=== PATIENT | female | born 1980 | race Two or more races ===

== ENCOUNTER → 2018-04-24 | Outpatient (CLI) | payer BC, OTHER | END | disposition home or self-care (01) | LOC: US 12:05 | DX: R92.8 Other abnormal and inconclusive findings on diagnostic imaging of breast (principal); E11.9 Type 2 diabetes mellitus without complications | CPT/HCPCS: 76641 ==

== ENCOUNTER 2021-08-29 07:22 | Day surgery (SDC) | payer BC ==
[~2021-08-29] VITALS: Ht 149.9 cm; Wt 71.0 kg
[~2021-08-29 07:22] MED LIST: DOXY1TAB3 PO; HYDROmorphone 2 MG/ML VIAL IVP PRN; IV RINGERS,LACTATED 1000ML 1,000 ML IV SCH; MORPHINE SULFATE 2 MG/ML INJ. IVP PRN; OXYC1TAB15 PO; PROCHLORPERAZINE 10 MG/2 ML VIAL. IVP PRN; ceFAZolin SODIUM IV Push 1 GM VIAL. IVP PRN; fentaNYL PF VIAL 100 MCG/2 ML VIAL IVP PRN
[2021-08-29] MEDS ORDERED: LIDOCAINE 1% Multi-Dose 20 ML VIAL. INJ ONE (07:30)
[2021-08-29] MEDS ORDERED: ceFAZolin SODIUM IV Push 1 GM VIAL. IVP ONE (07:30)
[2021-08-29 07:42] VITALS: BP 112/63
[2021-08-29] MEDS ORDERED: METHYLENE BLUE 0.5% 10ml AMPULE. IJ ONE (07:45)
[2021-08-29 09:00] LABS: BASO % 1 % (0-3); EOS # 0.2 x10^3/uL (0.0-0.7); EOS % 2 % (0-3); HEMATOCRIT 40.8 % (36.0-47.0); HEMOGLOBIN 13.9 g/dL (12.0-15.5); LYMPH # 2.8 x10^3/uL (1.0-4.8); LYMPH % 36 % (24-48); MEAN CORPUSCULAR HEMOGLOBIN 30 pg (25-35); MEAN CORPUSCULAR HGB CONC 34 g/dL (31-37); MEAN CORPUSCULAR VOLUME 87 fL (79-100); MONO # 0.4 x10^3/uL (0.0-1.1); MONO % 6 % (0-9); NEUT # 4.2 x10^3/uL (1.8-7.7); NEUT % 56 % (31-73); PLATELET COUNT 272 x10^3/uL (140-400); RED CELL DISTRIBUTION WIDTH 13.1 % (11.5-14.5); WHITE BLOOD COUNT 7.6 x10^3/uL (4.0-11.0)
[2021-08-29 09:08] LABS: CALCIUM 8.4 mg/dL (8.5-10.1); CREATININE 0.5 mg/dL (0.6-1.0); GFR 135.3; POTASSIUM 3.6 mmol/L (3.5-5.1)
[2021-08-29 09:14] LABS: ALBUMIN 3.5 g/dL (3.4-5.0); ALBUMIN/GLOBULIN RATIO 0.9 (1.0-1.7); TOTAL BILIRUBIN 0.6 mg/dL (0.2-1.0); TOTAL PROTEIN 7.6 g/dL (6.4-8.2)
[2021-08-29] MEDS ORDERED: DEXAMETHASONE SOD PHOS 4 MG/ML VIAL ONE (10:03)
[2021-08-29] MEDS ORDERED: MIDAZOLAM HCL/PF 2 MG/2 ML VIAL. ONE (10:03)
[2021-08-29] MEDS ORDERED: ONDANSETRON PF 4 MG/2 ML VIAL. ONE (10:03)
[2021-08-29] MEDS ORDERED: METHYLENE BLUE 0.5% 10ml AMPULE. ONE (10:03)
[2021-08-29] MEDS ORDERED: LIDOCAINE 2% PF 5 ML VIAL. ONE (10:03)
[2021-08-29] MEDS ORDERED: PROPOFOL 10 MG/ML (20ML) VIAL. IV ONE (10:03)
[2021-08-29] MEDS ORDERED: fentaNYL PF VIAL 100 MCG/2 ML VIAL ONE ×3 (10:03→13:01)
--- NOTE | 2021-08-29 10:20 | PDOC ---
SURGICAL PROGRESS NOTE DATE: 08/29/21 TIME: 10:19 No change in dictated H&P Vital Signs Vital Signs Date Time Temp Pulse Resp B/P (MAP) Pulse Ox O2 Delivery O2 Flow Rate FiO2 08/29/21 07:42 97.5 76 96 97.5 08/29/21 07:35 12 112/63 Room Air Labs Laboratory Tests Test 08/29/21 07:28 08/29/21 07:44 Bedside Urine HCG, Qualitative Hcg negative (Negative) White Blood Count 7.6 x10^3/uL (4.0-11.0) Red Blood Count 4.70 x10^6/uL (3.50-5.40) Hemoglobin 13.9 g/dL (12.0-15.5) Hematocrit 40.8 % (36.0-47.0) Mean Corpuscular Volume 87 fL (79-100) Mean Corpuscular Hemoglobin 30 pg (25-35) Mean Corpuscular Hemoglobin Concent 34 g/dL (31-37) Red Cell Distribution Width 13.1 % (11.5-14.5) Platelet Count 272 x10^3/uL (140-400) Neutrophils (%) (Auto) 56 % (31-73) Lymphocytes (%) (Auto) 36 % (24-48) Monocytes (%) (Auto) 6 % (0-9) Eosinophils (%) (Auto) 2 % (0-3) Basophils (%) (Auto) 1 % (0-3) Neutrophils # (Auto) 4.2 x10^3/uL (1.8-7.7) Lymphocytes # (Auto) 2.8 x10^3/uL (1.0-4.8) Monocytes # (Auto) 0.4 x10^3/uL (0.0-1.1) Eosinophils # (Auto) 0.2 x10^3/uL (0.0-0.7) Basophils # (Auto) 0.0 x10^3/uL (0.0-0.2) Sodium Level 141 mmol/L (136-145) Potassium Level 3.6 mmol/L (3.5-5.1) Chloride Level 104 mmol/L (98-107) Carbon Dioxide Level 29 mmol/L (21-32) Anion Gap 8 (6-14) Blood Urea Nitrogen 16 mg/dL (7-20) Creatinine 0.5 mg/dL (0.6-1.0) Estimated GFR (Cockcroft-Gault) 135.3 BUN/Creatinine Ratio 32 (6-20) Glucose Level 114 mg/dL (70-99) Calcium Level 8.4 mg/dL (8.5-10.1) Total Bilirubin 0.6 mg/dL (0.2-1.0) Aspartate Amino Transf (AST/SGOT) 44 U/L (15-37) Alanine Aminotransferase (ALT/SGPT) 101 U/L (14-59) Alkaline Phosphatase 64 U/L (46-116) Total Protein 7.6 g/dL (6.4-8.2) Albumin 3.5 g/dL (3.4-5.0) Albumin/Globulin Ratio 0.9 (1.0-1.7) Laboratory Tests Test 08/29/21 07:28 08/29/21 07:44 Bedside Urine HCG, Qualitative Hcg negative (Negative) White Blood Count 7.6 x10^3/uL (4.0-11.0) Red Blood Count 4.70 x10^6/uL (3.50-5.40) Hemoglobin 13.9 g/dL (12.0-15.5) Hematocrit 40.8 % (36.0-47.0) Mean Corpuscular Volume 87 fL (79-100) Mean Corpuscular Hemoglobin 30 pg (25-35) Mean Corpuscular Hemoglobin Concent 34 g/dL (31-37) Red Cell Distribution Width 13.1 % (11.5-14.5) Platelet Count 272 x10^3/uL (140-400) Neutrophils (%) (Auto) 56 % (31-73) Lymphocytes (%) (Auto) 36 % (24-48) Monocytes (%) (Auto) 6 % (0-9) Eosinophils (%) (Auto) 2 % (0-3) Basophils (%) (Auto) 1 % (0-3) Neutrophils # (Auto) 4.2 x10^3/uL (1.8-7.7) Lymphocytes # (Auto) 2.8 x10^3/uL (1.0-4.8) Monocytes # (Auto) 0.4 x10^3/uL (0.0-1.1) Eosinophils # (Auto) 0.2 x10^3/uL (0.0-0.7) Basophils # (Auto) 0.0 x10^3/uL (0.0-0.2) Sodium Level 141 mmol/L (136-145) Potassium Level 3.6 mmol/L (3.5-5.1) Chloride Level 104 mmol/L (98-107) Carbon Dioxide Level 29 mmol/L (21-32) Anion Gap 8 (6-14) Blood Urea Nitrogen 16 mg/dL (7-20) Creatinine 0.5 mg/dL (0.6-1.0) Estimated GFR (Cockcroft-Gault) 135.3 BUN/Creatinine Ratio 32 (6-20) Glucose Level 114 mg/dL (70-99) Calcium Level 8.4 mg/dL (8.5-10.1) Total Bilirubin 0.6 mg/dL (0.2-1.0) Aspartate Amino Transf (AST/SGOT) 44 U/L (15-37) Alanine Aminotransferase (ALT/SGPT) 101 U/L (14-59) Alkaline Phosphatase 64 U/L (46-116) Total Protein 7.6 g/dL (6.4-8.2) Albumin 3.5 g/dL (3.4-5.0) Albumin/Globulin Ratio 0.9 (1.0-1.7) Justicifation of Admission Dx: Justifications for Admission: Justification of Admission Dx: Yes CARSON GUARDADO MD Aug 29, 2021 10:20
--- NOTE | 2021-08-29 10:30 | PDOC ---
SURGICAL PROGRESS NOTE DATE: 08/29/21 TIME: 10:28 Subjective Op Note: Surgeon...................................Andrea Pre and post op diag...............left breast mass Anesthesia..............................general Procedure...............................excision left breast mass via needle localization Drains....................................none Blood loss..............................10cc Fluids.....................................see anesthesia sheet Condition................................satisfactory Vital Signs Vital Signs Date Time Temp Pulse Resp B/P (MAP) Pulse Ox O2 Delivery O2 Flow Rate FiO2 08/29/21 07:42 97.5 76 96 97.5 08/29/21 07:35 12 112/63 Room Air Labs Laboratory Tests Test 08/29/21 07:28 08/29/21 07:44 Bedside Urine HCG, Qualitative Hcg negative (Negative) White Blood Count 7.6 x10^3/uL (4.0-11.0) Red Blood Count 4.70 x10^6/uL (3.50-5.40) Hemoglobin 13.9 g/dL (12.0-15.5) Hematocrit 40.8 % (36.0-47.0) Mean Corpuscular Volume 87 fL (79-100) Mean Corpuscular Hemoglobin 30 pg (25-35) Mean Corpuscular Hemoglobin Concent 34 g/dL (31-37) Red Cell Distribution Width 13.1 % (11.5-14.5) Platelet Count 272 x10^3/uL (140-400) Neutrophils (%) (Auto) 56 % (31-73) Lymphocytes (%) (Auto) 36 % (24-48) Monocytes (%) (Auto) 6 % (0-9) Eosinophils (%) (Auto) 2 % (0-3) Basophils (%) (Auto) 1 % (0-3) Neutrophils # (Auto) 4.2 x10^3/uL (1.8-7.7) Lymphocytes # (Auto) 2.8 x10^3/uL (1.0-4.8) Monocytes # (Auto) 0.4 x10^3/uL (0.0-1.1) Eosinophils # (Auto) 0.2 x10^3/uL (0.0-0.7) Basophils # (Auto) 0.0 x10^3/uL (0.0-0.2) Sodium Level 141 mmol/L (136-145) Potassium Level 3.6 mmol/L (3.5-5.1) Chloride Level 104 mmol/L (98-107) Carbon Dioxide Level 29 mmol/L (21-32) Anion Gap 8 (6-14) Blood Urea Nitrogen 16 mg/dL (7-20) Creatinine 0.5 mg/dL (0.6-1.0) Estimated GFR (Cockcroft-Gault) 135.3 BUN/Creatinine Ratio 32 (6-20) Glucose Level 114 mg/dL (70-99) Calcium Level 8.4 mg/dL (8.5-10.1) Total Bilirubin 0.6 mg/dL (0.2-1.0) Aspartate Amino Transf (AST/SGOT) 44 U/L (15-37) Alanine Aminotransferase (ALT/SGPT) 101 U/L (14-59) Alkaline Phosphatase 64 U/L (46-116) Total Protein 7.6 g/dL (6.4-8.2) Albumin 3.5 g/dL (3.4-5.0) Albumin/Globulin Ratio 0.9 (1.0-1.7) Laboratory Tests Test 08/29/21 07:28 08/29/21 07:44 Bedside Urine HCG, Qualitative Hcg negative (Negative) White Blood Count 7.6 x10^3/uL (4.0-11.0) Red Blood Count 4.70 x10^6/uL (3.50-5.40) Hemoglobin 13.9 g/dL (12.0-15.5) Hematocrit 40.8 % (36.0-47.0) Mean Corpuscular Volume 87 fL (79-100) Mean Corpuscular Hemoglobin 30 pg (25-35) Mean Corpuscular Hemoglobin Concent 34 g/dL (31-37) Red Cell Distribution Width 13.1 % (11.5-14.5) Platelet Count 272 x10^3/uL (140-400) Neutrophils (%) (Auto) 56 % (31-73) Lymphocytes (%) (Auto) 36 % (24-48) Monocytes (%) (Auto) 6 % (0-9) Eosinophils (%) (Auto) 2 % (0-3) Basophils (%) (Auto) 1 % (0-3) Neutrophils # (Auto) 4.2 x10^3/uL (1.8-7.7) Lymphocytes # (Auto) 2.8 x10^3/uL (1.0-4.8) Monocytes # (Auto) 0.4 x10^3/uL (0.0-1.1) Eosinophils # (Auto) 0.2 x10^3/uL (0.0-0.7) Basophils # (Auto) 0.0 x10^3/uL (0.0-0.2) Sodium Level 141 mmol/L (136-145) Potassium Level 3.6 mmol/L (3.5-5.1) Chloride Level 104 mmol/L (98-107) Carbon Dioxide Level 29 mmol/L (21-32) Anion Gap 8 (6-14) Blood Urea Nitrogen 16 mg/dL (7-20) Creatinine 0.5 mg/dL (0.6-1.0) Estimated GFR (Cockcroft-Gault) 135.3 BUN/Creatinine Ratio 32 (6-20) Glucose Level 114 mg/dL (70-99) Calcium Level 8.4 mg/dL (8.5-10.1) Total Bilirubin 0.6 mg/dL (0.2-1.0) Aspartate Amino Transf (AST/SGOT) 44 U/L (15-37) Alanine Aminotransferase (ALT/SGPT) 101 U/L (14-59) Alkaline Phosphatase 64 U/L (46-116) Total Protein 7.6 g/dL (6.4-8.2) Albumin 3.5 g/dL (3.4-5.0) Albumin/Globulin Ratio 0.9 (1.0-1.7) Justicifation of Admission Dx: Justifications for Admission: Justification of Admission Dx: Yes CARSON GUARDADO MD Aug 29, 2021 10:30
--- NOTE | 2021-08-29 11:06 | PREOP HP ---
DATE OF SERVICE: 08/29/2021 HISTORY OF PRESENT ILLNESS: The patient is referred by Dr. Feliciano because of a mass of the left breast. The history shows that she had this mass found on routine mammography and in fact had biopsy, which proved it to be benign. This was just done about a week ago. She has thought about it, seen Dr. Feliciano and she is adamant about wanting the suspicious area removed. She has been told and knows that the biopsy specimens were benign, but she still wants this removed. She is adamant and does not want to worry about it or think about it or have another mammogram, which shows that the next year she has a mammogram. PAST MEDICAL HISTORY: Shows normal childhood diseases. No high blood pressure, cancer, TB, asthma. MEDICATIONS: No other medications and takes no anticoagulants. ALLERGIES: ALLERGIC TO CODEINE, SHE HAS A RASH. SOCIAL HISTORY: Does not smoke, drink or use drugs. REVIEW OF SYSTEMS: Negative except for breast, which on the left breast laterally where the biopsy site was just a little bit tender. FAMILY HISTORY: Noncontributory and review of systems was negative other than the breast pain from the biopsy. PHYSICAL EXAMINATION: GENERAL: Shows an alert female, in no acute distress. HEAD, EYES, EARS, NOSE AND THROAT: Grossly clear. CHEST: Clear to auscultation. HEART: Had no murmurs, heaves, friction rubs or thrills, and the rate was 70 beats per minute and was regular. ABDOMEN: Protuberant, obese, could not really tell if the liver was enlarged. EXTREMITIES: Grossly normal. PELVIC: Not done. BREASTS: Examination of the breasts, both axillary areas are negative. Right breast was normal without masses and neither had nipple discharge. She did have a small scratch, where the needle biopsy had been done at the lateral broader area of the left breast about 4-6 inches from the areolar margin. It was somewhat tender there, though not breast, just tender from the biopsy. IMPRESSION: Mass of the left breast. Per her request, we will plan to excise the area of concern under needle localization at a time that is satisfactory with her. VIKA DR: Karlos TID: [id number] [facility]
--- NOTE | 2021-08-29 12:02 | DISCH ---
DISCHARGE INSTRUCTIONS Condition on Discharge Condition on Discharge: Stable Activity After Discharge Activity Instructions for Disc: Activity as tolerated, Avoid exertion Bathing Instructions: Shower-keep dressing dry Lifting Instructions after Dis: No heavy lifting Driving Instructions after Dis: Do not drive today Weight Bearing Status after Di: As tolerated Diet after Discharge Diet after Discharge: Clear Liquid, Regular Diet Texture: Regular Wound Incision Care Wound/Incision Care: Reinforce dressing PRN Contacting the DR. after DC Call your doctor for: Concerns you may have Follow-Up Follow up with: call and make appointment top see me in 2 weeks. Treatment/Equipment after DC Adaptive Equipment Issued: None CARSON GUARDADO MD Aug 29, 2021 12:02
[2021-08-29] MEDS: fentaNYL PF VIAL 100 MCG/2 ML VIAL IVP PRN ×3 (12:16→13:03)
[2021-08-29] MEDS ORDERED: PROCHLORPERAZINE 10 MG/2 ML VIAL. ONE (12:29)
[2021-08-29] MEDS ORDERED: oxyCODONE/APAP 5/325 1 TAB TABLET PO ONE (12:30)
[2021-08-29 13:10] VITALS: BP 117/60
--- NOTE | 2021-08-29 19:31 | OP ---
DATE OF SURGERY: 08/29/2021 PREOPERATIVE DIAGNOSIS: Mass of the left breast. POSTOPERATIVE DIAGNOSIS: Mass of the left breast. ANESTHESIA: General. PROCEDURE: Excision of mass, left breast via needle localization. TECHNIQUE: The patient has had previous biopsy of this done with the needle, proved to be benign, but she wanted it totally removed and did not want a tumor in her breast. As such, I reviewed the x-rays and after the guidewire was placed this morning, we localized and knew the needle was just anterior to the clip in the area of concern and we knew exactly where to go plus methylene blue had been injected in the area. As such, an incision was made in the lateral breast extending inferolaterally where the guidewire went in. This was about 6-8 cm from the areolar margin, at about the 4 o'clock position. We carried this down through the skin following the skin lines at the site of the wire insertion. Once there, we then delivered the wire into the wound and slowly went with cautery down into the subcutaneous tissues. We used Danny retractors and then Maher to hold the wound open as we grasped the tissue around the guidewire and the guidewire. We pulled this into the wound and slowly used cautery to slowly go down around the guidewire widely, making certain that we went more anterior to assess where the mass was. One small bleeder was suture ligated with a 3-0 Vicryl. Otherwise, the bleeding was controlled with cautery. We simply went wide around the wire and saw where there is some methylene blue and went wide there to make certain that we got a wide breast tissue and encompass the mass, the clip that had been placed there in the guidewire. This was sent to x-ray and the radiologist I spoke to personally said that the guidewire in the area in question had been removed and no further treatment surgically was necessary at this point. As such, the resultant defect was inspected, irrigated and then the deeper breast tissue and other tissues were approximated in layers using 3-0 Vicryl interrupted sutures. The deep dermis and subcutaneous was approximated with 4-0 Vicryl and the skin was closed using a subcuticular 5-0 Vicryl. The procedure was now terminated and sterile dressing was applied. The blood loss during the procedure was probably 10 mL. Fluids given can be obtained from the anesthesia sheet. No drains were used and the condition of the patient was satisfactory as she has returned to the recovery room. HARJINDER DR: Karlos TID: [id number] MTDD
--- NOTE | 2021-08-31 09:03 | RAD ---
CLINICAL INDICATION: Reason: Abnormal mammogram PRE-PROCEDURAL CONSULTATION: Details of the procedure and possible limitations and complications were discussed with the patient. After addressing her questions and concerns, written informed consent wa s obtained. A time out was then taken to verify patient's name and date of as well as site and laterality. PROCEDURE: Using a 7.5 cm localizing needle, the biopsy clip within the left breast was targeted und er ultrasound via a lateral approach. The area of needle localization was cleansed and prepped in the typical sterile fashion. 5 cc of 1% lidocaine was used to anesthetize the skin and deeper soft tissu es. A 7.5 cm needle was then advanced immediately adjacent to the biopsy clip. The position of the ne edle was confirmed on orthogonal digital mammographic views and when optimal, the wire was deployed, the needle removed, and the wire secured in place. Hemostasis was achieved. Post-procedural digital mammographic views of the left breast demonstrate the biopsy clip immediatel y adjacent to the wire, approximately 1 cm proximal to the thick segment of the wire. The films with appropriate annotations were discussed in person with Dr. Mendez. The patient tolerated the procedure well with no immediate complications. Subsequent digital radiography of the surgical specimen demonstrates an intact wire with the targeted biopsy clip within the specimen. These findings were communicated to Dr. Mendez in the operating mar m. IMPRESSION: Successful ultrasound guided needle localization of a biopsy clip within the left breast. Correlation with final histopathology is recommended. Electronically signed by: Ronni Mckeon MD (08/31/2021 9:00 AM) [id number]
--- NOTE | 2021-09-05 09:11 | PATHOLOGY ---
[facility] Accession Number: [id number] . 01 Material submitted: . breast - LEFT BREAST MASS. Modifiers: left . 01 Clinical history: . EXCISION MASS LEFT BREAST VIA NEEDLE LOC . 02 Diagnosis: Breast tissue, wire-localized left breast lumpectomy: - Intraductal papillomas with florid and focal mild atypical ductal hyperplasia. - Proliferative fibrocystic changes with the following components: - Multifocal florid ductal epithelial hyperplasia and focal mild atypical ductal epithelial hyperplasia. - Stromal fibrosis. - Duct ectasia. - Cystic change. - Apocrine metaplasia, focal. - Previous biopsy site changes. . (JPM:bailee/yasemin; 08/30/2021) [facility] 09/04/2021 1820 Local . 02 Comment: Sections of the wire localized left breast lumpectomy reveal several intraductal papillomas which show florid and focal mildly atypical ductal epithelial hyperplasia. Microscopic sections also reveal proliferative fibrocystic changes. There is multifocal florid ductal epithelial hyperplasia and focal mild atypical ductal epithelial hyperplasia. There are previous biopsy site changes. Multiple immunoperoxidase stains are obtained on multiple blocks and yield the following results: . CK5/6 (A2): Mosaic pattern of epithelial positivity in focus of florid ductal epithelial hyperplasia and absent positivity in area of mildly atypical ductal epithelial hyperplasia. P63 (A9): Presence of myoepithelial cells within intraductal papilloma. CK5/6 (A9): Focal mosaic pattern epithelial positivity within area of florid ductal epithelial hyperplasia of papilloma. P63 (A13): Presence of myoepithelial cells within ductal papilloma. CK5/6 (A13): Mosaic pattern of epithelial positivity within areas of florid ductal hyperplasia of ductal papilloma and other ducts. CK5/6 (A16): Mosaic pattern of epithelial positivity in areas of florid ductal epithelial hyperplasia and absent positivity within foci of mild atypical ductal hyperplasia. CK5/6 (A17): Mosaic pattern epithelial positivity within areas of florid ductal epithelial hyperplasia and absent positivity within foci of mildly atypical ductal epithelial hyperplasia. P63 (A20): Presence of myoepithelial cells within intraductal papilloma. CK5/6 (A20): Mosaic pattern of epithelial positivity within foci of florid ductal epithelial hyperplasia of papilloma and absent positivity within foci of mildly atypical ductal hyperplasia within papilloma. . There is no evidence of ductal carcinoma in situ or invasive ductal carcinoma. The margins of excision appear negative for atypical ductal epithelial hyperplasia. . The case is also examined by Dr. Ramonita Prather, who concurs with the diagnosis. . (JPM:u.s. revenue officer; 09/04/2021) . . Special stains performed: Immunoperoxidase stain for CK5/6 on A2, A9, A13, A16, A17 and A20; p63 on A9, A13 and A20. . 02 Electronically signed: . Sumit Altamirano MD, Pathologist NPI- [id number] . 01 Gross description: . Fixative: Formalin Labeled: Left breast mass Specimen received: Unoriented lumpectomy with wire localization (the wire is floating separately within the container) Weight: 25 g Dimensions: 7.0 x 6.0 x 1.2 cm Surgical margin: Inked black Number of slices: 21 Cut surfaces: Bright yellow, lobulated with a cystic structure identified within slices 12 and 13 measuring 0.5 cm, which grossly approaches the inked margin, as well as a focus of pink-vu indurated tissue in slices 15 and 16 measuring 1.8 cm in maximum dimensions, which grossly abuts the inked margin . The specimen is submitted as follows: . A1 slice 1, bisected A2 slice 2, bisected A3 slice 3, bisected A4 technical services representative slice 4 A5 technical services representative slice 5 A6 technical services representative slice 6 A7 technical services representative slice 7 A8 technical services representative slice 8 A9 technical services representative slice 9 A10 technical services representative slice 10 A11 technical services representative slice 11 A12-A13 slice 12, bisected A14-A15 slice 13, bisected A16 technical services representative slice 14 A17-A18 slice 15, bisected A19-A20 slice 16, bisected A21 technical services representative slice 17 A22 technical services representative slice 18 A23 technical services representative slice 19 A23 slice 20 A24 slice 21. . The specimen is removed from the patient at 1105 and placed in formalin at 1127 on 08/29/2021. The specimen is removed from formalin at 2140 on 08/29/2021. The specimen is in formalin for greater than 6 hours and less than 72 hours. (CAA; 08/29/2021) QAC/QAC 08/29/2021 1653 Local . 02 Pathologist provided ICD-10: N60.12, N60.92, N60.32, N60.42, N60.22 . 02 CPT . 052138, [id number], [id number] Specimen Comment: A courtesy copy of this report has been sent to [phone], [phone] Specimen Comment: [id number] Specimen Comment: Report sent to / DR PAN Performed at: 01 [facility] [address], [place] [id number] MD Shoaib Avila MD Phone: [phone] Performed at: 02 [facility] [address] [place], [place] [id number] MD Sumit Altamirano MD Phone: [phone]
== END 2021-08-29 13:45 | disposition home or self-care (01) ==
LOC: SURG 07:22
PROVIDERS: ATTEND Specialist
DX: N60.12 Diffuse cystic mastopathy of left breast (principal); R92.8 Other abnormal and inconclusive findings on diagnostic imaging of breast; N60.92 Unspecified benign mammary dysplasia of left breast; N60.42 Mammary duct ectasia of left breast; N60.22 Fibroadenosis of left breast; M19.90 Unspecified osteoarthritis, unspecified site; Z85.3 Personal history of malignant neoplasm of breast; Z98.51 Tubal ligation status; Z98.890 Other specified postprocedural states; Z79.899 Other long term (current) drug therapy; Z88.5 Allergy status to narcotic agent
CPT/HCPCS: 19125; 19281; 36415; 76098; 80053; 81025; 85025; 88307; 88341; 88342; A4556; A4930; A6258; A6402; C1819; J0690; J0780; J1100; J2250; J2405; J2704; J3010; J3490; Q9968

== ENCOUNTER 2022-03-05 01:13 | Emergency (ER) | payer BC ==
[~2022-03-05] VITALS: Ht 149.9 cm; Wt 85.0 kg
[~2022-03-05 01:13] MED LIST changes: -HYDROmorphone 2 MG/ML VIAL IVP PRN; -IV RINGERS,LACTATED 1000ML 1,000 ML IV SCH; -MORPHINE SULFATE 2 MG/ML INJ. IVP PRN; -PROCHLORPERAZINE 10 MG/2 ML VIAL. IVP PRN; -ceFAZolin SODIUM IV Push 1 GM VIAL. IVP PRN; -fentaNYL PF VIAL 100 MCG/2 ML VIAL IVP PRN
[2022-03-05] MEDS ORDERED: IBUPROFEN 200 MG TABLET. PO ONE (01:45)
--- NOTE | 2022-03-05 02:12 | RAD ---
Chest radiograph 03/05/2022 1:50 AM INDICATION: Left-sided chest pain COMPARISON: None available TECHNIQUE: Frontal and lateral views of the chest are provided. FINDINGS: The cardiomediastinal silhouette is within normal limits. There are no pleural effusions. There is no pulmonary vascular congestion. There is no pneumothorax. The lungs are clear. No significant osseous abnormality is identified. IMPRESSION: No acute cardiopulmonary process. Electronically signed by: Kym Llanos MD (03/05/2022 2:10 AM) [facility]
[2022-03-05 02:22] LABS: BASO # 0.1 x10^3/uL (0.0-0.2); BASO % 1 % (0-3); EOS # 0.2 x10^3/uL (0.0-0.7); EOS % 2 % (0-3); HEMOGLOBIN 13.6 g/dL (12.0-15.5); LYMPH # 3.7 x10^3/uL (1.0-4.8); LYMPH % 43 % (24-48); MEAN CORPUSCULAR HEMOGLOBIN 30 pg (25-35); MEAN CORPUSCULAR HGB CONC 34 g/dL (31-37); MEAN CORPUSCULAR VOLUME 87 fL (79-100); MONO # 0.5 x10^3/uL (0.0-1.1); MONO % 6 % (0-9); NEUT # 4.1 x10^3/uL (1.8-7.7); NEUT % 48 % (31-73); PLATELET COUNT 311 x10^3/uL (140-400); RED BLOOD COUNT 4.58 x10^6/uL (3.50-5.40); RED CELL DISTRIBUTION WIDTH 13.7 % (11.5-14.5); WHITE BLOOD COUNT 8.6 x10^3/uL (4.0-11.0)
[2022-03-05 02:43] LABS: CALCIUM 8.8 mg/dL (8.5-10.1); CREATININE 0.5 mg/dL (0.6-1.0); GFR 135.3; POTASSIUM 4.1 mmol/L (3.5-5.1)
[2022-03-05 02:50] LABS: ALBUMIN 3.6 g/dL (3.4-5.0); TOTAL BILIRUBIN 0.3 mg/dL (0.2-1.0); TOTAL PROTEIN 7.3 g/dL (6.4-8.2)
--- NOTE | 2022-03-05 02:56 | EKG ---
[facility] [address] [place] [address] Test Date: 2022-03-05 Test Time: 01:59:23 Pat Name: RAJNI ACOSTA Department: Room: Gender: F [employer]: : 1980 Requested By: AL COREA Order Number: [id number] Reading MD: Delta Serrano Measurements Intervals Loop Rate: 75 P: 31 NC: 170 QRS: -3 QRSD: 86 T: 27 QT: 392 QTc: 440 Interpretive Statements SINUS RHYTHM LEFTWARD AXIS Electronically Signed On 03-05-2022 10:00:47 CDT by Delta Serrano
[2022-03-05 02:59] VITALS: BP 114/56
--- NOTE | 2022-03-05 03:04 | PHYS DOC ---
Past Medical History Past Medical History: No Pertinent History Past Surgical History: Tubal ligation Smoking Status: Never Smoker Alcohol Use: Rarely Drug Use: None General Adult EDM: Chief Complaint: FLANK PAIN HPI: HPI: Patient is a 41 year old F who presents with sharp pain to the left side of her chest just inferior and lateral to her left breast. Patient's pain started suddenly, not related to trauma, 1 week ago. Patient said the pain would go away and has been waiting to see if it improves, not taking [id number] pain medication. Patient's pains are nonradiating, easily reproducible with palpation, also reproducible with flexion extension of her chest wall. Patient denies any difficulty breathing, cough, rash, leg pain or swelling, shortness of breath. Review of Systems: Review of Systems: Constitutional: Denies fever or chills. [] Eyes: Denies change in visual acuity. [] HENT: Denies nasal congestion or sore throat. [] Respiratory: Denies cough or shortness of breath. [] Cardiovascular: C/O chest pain, Denies edema. [] GI: Denies abdominal pain, nausea, vomiting, bloody stools or diarrhea. [] : Denies dysuria. [] Musculoskeletal: Denies back pain or joint pain. [] Integument: Denies rash. [] Neurologic: Denies headache, focal weakness or sensory changes. [] Endocrine: Denies polyuria or polydipsia. [] Lymphatic: Denies swollen glands. [] Psychiatric: Denies depression or anxiety. [] Heart Score: C/O Chest Pain: Yes HEART Score for Chest Pain: HEART Score for Chest Pain Response (Comments) Value History Slighlty/Non-Suspicious 0 ECG Normal 0 Age < 45 0 Risk Factors 1 or 2 Risk Factors 1 Troponin < Normal Limit 0 Total 1 Risk Factors: Risk Factors: DM, Current or recent (<one month) smoker, HTN, HLP, family history of CAD, obesity. Risk Scores: Score 0 - 3: 2.5% MACE over next 6 weeks - Discharge Home Score 4 - 6: 20.3% MACE over next 6 weeks - Admit for Clinical Observation Score 7 - 10: 72.7% MACE over next 6 weeks - Early Invasive Strategies Current Medications: Current Medications Medications (Trade) Dose Ordered Sig/Galina Start Time Stop Time Status Last Admin Dose Admin Ibuprofen (Motrin) 600 mg 1X ONCE 03/05/22 01:45 03/05/22 01:46 DC 03/05/22 02:03 600 MG Allergies: Allergies: Allergies Coded Allergies Type Severity Reaction Last Updated Verified codeine Allergy Intermediate Rash 03/05/22 No Physical Exam: PE: Constitutional: Well developed, well nourished, no acute distress, non-toxic appearance. [] HENT: Normocephalic, atraumatic, bilateral external ears normal, oropharynx moist, no oral exudates, nose normal. [] Eyes: PERRLA, EOMI, conjunctiva normal, no discharge. [] Neck: Normal range of motion, no tenderness, supple, no stridor. [] Cardiovascular:Heart rate regular rhythm, no murmur [] Lungs & Thorax: Point TTP over lateral chest wall just inferiolateral to L breast, no mass, no rash, no discoloration. Bilateral breath sounds clear to auscultation [] Abdomen: Bowel sounds normal, soft, no tenderness, no masses, no pulsatile mass es. [] Skin: Warm, dry, no erythema, no rash. [] Back: No tenderness, no CVA tenderness. [] Extremities: No tenderness, no cyanosis, no clubbing, ROM intact, no edema. [] Neurologic: Alert and oriented X 3, normal motor function, normal sensory function, no focal deficits noted. [] Psychologic: Affect normal, judgement normal, mood normal. [] Current Patient Data: Labs: Laboratory Tests Test 03/05/22 02:10 White Blood Count 8.6 x10^3/uL (4.0-11.0) Red Blood Count 4.58 x10^6/uL (3.50-5.40) Hemoglobin 13.6 g/dL (12.0-15.5) Hematocrit 40.0 % (36.0-47.0) Mean Corpuscular Volume 87 fL (79-100) Mean Corpuscular Hemoglobin 30 pg (25-35) Mean Corpuscular Hemoglobin Concent 34 g/dL (31-37) Red Cell Distribution Width 13.7 % (11.5-14.5) Platelet Count 311 x10^3/uL (140-400) Neutrophils (%) (Auto) 48 % (31-73) Lymphocytes (%) (Auto) 43 % (24-48) Monocytes (%) (Auto) 6 % (0-9) Eosinophils (%) (Auto) 2 % (0-3) Basophils (%) (Auto) 1 % (0-3) Neutrophils # (Auto) 4.1 x10^3/uL (1.8-7.7) Lymphocytes # (Auto) 3.7 x10^3/uL (1.0-4.8) Monocytes # (Auto) 0.5 x10^3/uL (0.0-1.1) Eosinophils # (Auto) 0.2 x10^3/uL (0.0-0.7) Basophils # (Auto) 0.1 x10^3/uL (0.0-0.2) D-Dimer (Kaylan) 0.28 ug/mlFEU (0.00-0.50) Sodium Level 139 mmol/L (136-145) Potassium Level 4.1 mmol/L (3.5-5.1) Chloride Level 105 mmol/L (98-107) Carbon Dioxide Level 28 mmol/L (21-32) Anion Gap 6 (6-14) Blood Urea Nitrogen 12 mg/dL (7-20) Creatinine 0.5 mg/dL (0.6-1.0) L Estimated GFR (Cockcroft-Gault) 135.3 BUN/Creatinine Ratio 24 (6-20) H Glucose Level 118 mg/dL (70-99) H Calcium Level 8.8 mg/dL (8.5-10.1) Total Bilirubin 0.3 mg/dL (0.2-1.0) Aspartate Amino Transferase (AST) 34 U/L (15-37) Alanine Aminotransferase (ALT) 68 U/L (14-59) H Alkaline Phosphatase 75 U/L (46-116) Troponin I High Sensitivity 6 ng/L (4-50) Total Protein 7.3 g/dL (6.4-8.2) Albumin 3.6 g/dL (3.4-5.0) Albumin/Globulin Ratio 1.0 (1.0-1.7) Laboratory Tests 03/05/22 02:10 Laboratory Tests 03/05/22 02:10 Vital Signs: Vital Signs Date Time Temp Pulse Resp B/P (MAP) Pulse Ox O2 Delivery O2 Flow Rate FiO2 5/16/22 01:15 98.2 82 20 120/73 (89) 97 98.2 EKG: EKG: EKG done at 0159, normal sinus rhythm with a rate of 75, leftward axis, normal intervals, T wave inversion in V1 and V2, no ST changes Radiology/Procedures: Radiology/Procedures: CXR Impression: No focal opacities, large effusion, pneumothorax Course & Med Decision Making: Course & Med Decision Making Pertinent Labs and Imaging studies reviewed. (See chart for details) Patient with likely musculoskeletal chest pain, will work-up for possible ACS or PE with troponin and D-dimer, chest x-ray to rule out pneumonia or lung mass. Giving the patient ibuprofen for pain as she has not been take anything for pain at home. Work-up negative, patient still complaining of pain in her chest wall, mild to no improvement with ibuprofen. Will recommend she follows up closely with her primary doctor in case his pain is not improving over the next week. Dragon Disclaimer: Dragon Disclaimer: This electronic medical record was generated, in whole or in part, using a voice recognition dictation system. Departure Departure Impression: Primary Impression: Chest wall pain Disposition: HOME / SELF CARE / HOMELESS Condition: STABLE Referrals: SUZANNA PAN MD (PCP) Patient Instructions: Chest Wall Pain, [id number] AL COREA MD March 05, 2022 03:04
== END 2022-03-05 03:15 | disposition home or self-care (01) ==
LOC: ER 01:13
DX: R07.89 Other chest pain (principal); Z88.5 Allergy status to narcotic agent
CPT/HCPCS: 36415; 71046; 80053; 84484; 85025; 85379; 93005; 99285-25